=== PATIENT | female | born 1990 | race Caucasian/White ===

== ENCOUNTER 2017-04-01 12:27 | Emergency (ER) | payer SELFPAY ==
[2017-04-01 12:53] VITALS: TEMP 99.2
--- NOTE | 2017-04-01 13:28 | RAD ---
EXAM DESCRIPTION: Knee,Right Complete CLINICAL HISTORY: 27 years, Female, fall COMPARISON: None. FINDINGS: Diagonal lucency through the lateral inferior patella is probably a nondisplaced fracture. Focal prepatellar soft tissue swelling. Other bones and joints intact. IMPRESSION: Nondisplaced diagonal fracture inferior lateral patellar. Electronically signed by: Gianni Sands MD 04/01/2017 1:28 PM CDT
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
[2017-04-01 14:42] VITALS: BP 107/63; O2SAT 97
== END 2017-04-01 14:42 | disposition home or self-care (01) ==
LOC: ER 12:27
DX: S82.091A Other fracture of right patella, initial encounter for closed fracture (principal); Z87.891 Personal history of nicotine dependence; Y93.19 Activity, other involving water and watercraft; Y92.89 Other specified places as the place of occurrence of the external cause; W19.XXXA Unspecified fall, initial encounter